=== PATIENT | male | born 1990 | race African-American/Black ===

== ENCOUNTER 2019-07-23 19:28 | Emergency (ER) | payer MEDICAID ==
[~2019-07-23] VITALS: Ht 190.5 cm; Wt 57.0 kg
[2019-07-24] MEDS ORDERED: PREDNISONE 20MG TABLET PO ONE (01:00)
[2019-07-24] MEDS ORDERED: IPRATROPIUM BROMIDE (0.02%) 0.5MG/2.5ML NEB HHN ONE (01:00)
[2019-07-24] MEDS ORDERED: ALBUTEROL (0.5%) 2.5MG/0.5ML NEB HHN ONE (01:00)
[2019-07-24] MEDS ORDERED: SODIUM CHLORIDE 0.9% 500 ML IV ONE (01:08)
[2019-07-24] MEDS ORDERED: KETOROLAC 30MG/ML VIAL IV STA (01:08)
[2019-07-24 01:25] LABS: BASOPHILS % 0.6 % (0.0-2.0); EOSINOPHILS % 3.3 % (0.0-5.0); HEMATOCRIT. 38.1 % (42.0-52.0); HEMOGLOBIN. 12.8 g/dL (14.0-18.0); LYMPHOCYTES % 16.4 % (20.0-50.0); MEAN CORPUSCULAR HEMOGLOBIN 28.6 pg (28.0-32.0); MEAN CORPUSCULAR VOLUME 85.2 fL (80.0-94.0); MEAN PLATELET VOLUME 7.9 fl (7.4-10.4); MONOCYTES % 9.7 % (2.0-8.0); PLATELET 182 x1000/uL (130-400); RED BLOOD CELL COUNT 4.47 mill/uL (4.7-6.1); RED CELL DISTRIBUTION WIDTH 13.9 % (11.6-14.6)
[2019-07-24 01:42] LABS: CHLORIDE 105 mEq/L (98-107)
[2019-07-24 08:24] VITALS: BP 105/70
== END 2019-07-24 08:30 | disposition home or self-care (01) ==
LOC: ER 19:28
DX: J06.9 Acute upper respiratory infection, unspecified (principal); M79.10 Myalgia, unspecified site; M54.2 Cervicalgia; R07.89 Other chest pain; R06.2 Wheezing; D64.9 Anemia, unspecified; F12.10 Cannabis abuse, uncomplicated; F17.200 Nicotine dependence, unspecified, uncomplicated; Z86.73 Personal history of transient ischemic attack (TIA), and cerebral infarction without residual deficits; V49.88XA Car occupant (driver) (passenger) injured in other specified transport accidents, initial encounter; Y93.89 Activity, other specified; Y92.89 Other specified places as the place of occurrence of the external cause; Y99.8 Other external cause status
CPT/HCPCS: 36415; 71045; 80053; 82962; 85025; 93005; 96374; 99284; J1885; J7030; J7512; J7611; Z7610